=== PATIENT | female | born 1940 | race Asian ===

== ENCOUNTER 2017-07-25 14:58 | Observation (INO) | payer OTHER ==
--- NOTE | 2017-07-25 15:15 | PDOC ---
History of Present Illness - General Chief Complaint: Chest Pain Stated Complaint: ADMIT, CHEST PAIN (PCP SENT) Time Seen by Provider: 07/25/17 15:13 History Source: Patient - History of Present Illness Initial Comments: 76 year old Burkinan female with PMH of GERD and non-insulin dependent diabetes presenting with left sided temporal headache radiating to left chest and shoulder. She states that the headache started 5 days ago and then recently started to radiate down her neck and shoulder. She denies sob, diaphoresis, or other co-presenting symptoms. She admits to a heaviness in her left shoulder intermittently over the last two months as well. She admits to relief of the pain briefly with aleve and Tylenol. She saw Dr. Pantoja earlier in the day and she recommended that she be admitted for further cardiac workup. Patient is almost completely Danish speaking and has been living in the for a few years now. Denies fevers, chills, nausea, vomiting, diarrhea, constipation, photophobia, or other symptoms. 07/25/17 16:24 Past History - Past Medical History Allergies/Adverse Reactions: Allergies Allergy/AdvReac Type Severity Reaction Status Date / Time No Known Allergies Allergy Verified 07/25/17 15:10 Diabetes: Yes GI Disorders: Yes (GERD) - Suicide/Smoking/Psychosocial Hx Smoking History: Never smoked Hx Alcohol Use: No Drug/Substance Use Hx: No Review of Systems - Review of Systems Constitutional: No: Chills, Diaphoresis, Fever, Night Sweats HEENTM: No: Eye Pain, Blurred Vision, Recent change in vision, Hearing Loss, Throat Pain Respiratory: No: Cough, Shortness of Breath, SOB with Exertion Cardiac (ROS): Yes: Chest Pain ABD/GI: No: Diarrhea, Nausea, Vomiting : No: Burning, Dysuria Integumentary: No: Bruising, Erythema Neurological: Yes: Headache. No: Numbness, Paresthesia *Physical Exam - Vital Signs Last Vital Signs Temp Pulse Resp BP Pulse Ox 98.7 F 114 H 20 167/91 99 07/25/17 15:05 07/25/17 15:05 07/25/17 15:05 07/25/17 15:05 07/25/17 15:05 - Physical Exam General Appearance: Yes: Nourished, Appropriately Dressed. No: Apparent Distress HEENT: positive: EOMI, CARRIE, Normal ENT Inspection, Normal Voice, Other (To tenderness or palpablel cords in the left temporal regionj over site of endorsed headache.) Neck: positive: Trachea midline, Normal Thyroid, Supple. negative: Tender, Rigid Respiratory/Chest: positive: Chest Tender (reproducible chest pain in the left upper pectoral region.), Lungs Clear, Normal Breath Sounds. negative: Respiratory Distress, Accessory Muscle Use Cardiovascular: positive: Regular Rhythm, S1, S2, Tachycardia. negative: Regular Rate, Murmur Gastrointestinal/Abdominal: positive: Normal Bowel Sounds, Flat, Soft. negative : Tender Musculoskeletal: positive: Normal Inspection Extremity: positive: Normal Inspection, Normal Range of Motion (Slight pain with ranging of left shoulder.) Integumentary: positive: Normal Color, Dry, Warm Neurologic: positive: Alert, Normal Mood/Affect, Normal Response, Motor Strength 5/ ED Treatment Course - LABORATORY CBC & Chemistry Diagram: 07/25/17 16:00 07/25/17 18:12 Medical Decision Making - Medical Decision Making 76 year old female with headache radiating down to chest and shoulder. VSS with the exception of some tachycardia. Dr. Pantoja examined the patient in the ED and she was deemed appropriate for admission. Troponin negative and patient SATing well with HR of 74 prior to me leaving the ED at 22:10. CRP slightly elevated. Etiology of pain is likely MSK given negative troponin and normalized pulse rate. However, given diabetes and age, further cardiac workup will be pursued by Dr. Pantoja and Dr. Nur in the AM while under a tele obs stay. EKG - On admission it was sinus tach with incomplete RBB pattern and LAFB pattern and some inverted T waves in III. No old EKG to compare. 07/25/17 22:10 *DC/Admit/Observation/Transfer Diagnosis at time of Disposition: Chest pain Qualifiers: Chest pain type: unspecified Qualified Code(s): R07.9 - Chest pain, unspecified - Discharge Dispostion Admit: Yes - Referrals
--- NOTE | 2017-07-25 15:28 | PDOC ---
Attending Attestation - HPI HPI: 07/25/17 16:04 76year old female, with significant past medical history of NIDDM, gerd, who was sent into the emergency room by Dr. Pantoja complaining of a mild, constant bilateral temporal headache that radiates to the left neck, left shoulder, and left side of the chest. She took motrin with relief. Family friend states that her blood pressure was 170/90 yesterday and was also high in Dr. Blair office this morning. He also states that she has been experiencing heaviness in her left arm for the past couple of months. Denies fever, chills, nausea, vomiting. Denies SOB. Denies photophobia, visual changes, lightheadedness. Denies recent illness. Denies leg swelling. Patient does not speak Latvian. Please contact family friend Dr. Bullock for any questions . Allergies: NKDA PCP: Dr. Pantoja - Physicial Exam PE: 07/25/17 16:11 Constitutional: Awake, alert, oriented. No acute distress. Head: Normocephalic. Atraumatic Eyes: PERRL. EOMI. Conjunctivae are not pale. ENT: Mucous membranes are moist and intact. Posterior pharynx without exudates or erythema. Uvula midline. Neck: Supple. Full ROM. No lymphadenopathy. Cardiovascular: +tachycardic. Regular rhythm. S1, S2 regular. Distal pulses are 2+ and symmetric. Pulmonary/Chest: No evidence of respiratory distress. Clear to auscultation bilaterally No wheezing, rales or rhonchi. Abdominal: Soft and non-distended. There is no tenderness. No rebound, guarding or rigidity. No organomegaly. No palpable masses. Good bowel sounds. Back: No CVA tenderness. Musculoskeletal: No edema. No cyanosis. No clubbing. Full range of motion in all extremities. Nocalf tenderness. Radial/pedal pulses are intact and 2+ bilaterally Skin: Skin is warm and dry. No petechiae. No purpura. Neurological: Alert and oriented to person, place, and time. Cranial nerves II -XII are grossly intact. Normal speech. Strength is grossly symmetric. No sensory deficits. Psychiatric: Good eye contact. Normal interaction, affect and behavior. <Ca Gonzalez - Last Filed: 07/25/17 16:10> - Resident Resident Name: RuddyCristinaphanalejandra - ED Attending Attestation I have performed the following: I have examined & evaluated the patient, The case was reviewed & discussed with the resident, I agree w/resident's findings & plan, Exceptions are as noted - Medical Decision Making 07/25/17 15:28 I, Dr. Ronda Titus, DO, attest that this document has been prepared under my direction and personally reviewed by me in its entirety. I further attest, that it accurately reflects all work, treatment, procedures and medical decision -making performed by me. 07/25/17 16:17 a/p: 76yo female with SEARS and CP intermittent and new onset HTN -trop -abnl ekg -discussed with Dr. Pantoja who accepts pt to obs -consult to Dr. Nur -will send ESR and CRP given L sided sears -neuro intact -labs -cardiac monitoring <Ronda Titus - Last Filed: 07/25/17 16:19> Heart Score/ECG Review - ECG Intrepretation Comment:: 07/25/17 16:18 sinus tach at 101, incomplete RBBB, LAFB, abnl ekg <Ronda Titus - Last Filed: 07/25/17 16:19>
[2017-07-25] MEDS ORDERED: ASPIRIN 81 MG CHEWABLE TABLETS PO ONE ×2 (15:52→16:07)
[2017-07-25] MEDS ORDERED: ASPIRIN 81 MG CHEWABLE TABLETS ONE ×2 (16:00→16:32)
[2017-07-25] MEDS ORDERED: METOCLOPRAMIDE HCL 10 MG TABLET (FP) PO ONE ×2 (16:07→16:32)
[2017-07-25] MEDS ORDERED: ACETAMINOPHEN 500 MG TABLET (FP) PO ONE (16:07)
[2017-07-25 16:27] LABS: BASOPHIL 1.9 % (0-2.0); EOSINOPHIL 2.9 % (0-4.5); MCH 22.6 pg (25.7-33.7); MCHC 32.2 g/dl (32.0-36.0); MEAN PLT VOLUME 7.9 fl (7.5-11.1); NEUTROPHILS 60.6 % (42.8-82.8); PLATELET COUNT 344 K/MM3 (134-434); RDW 17.7 % (11.6-15.6); WHITE BLOOD COUNT 8.8 K/mm3 (4.0-10.0)
[2017-07-25] MEDS ORDERED: ACETAMINOPHEN 325 MG TABLET (FP) ONE (16:31)
[2017-07-25 16:57] LABS: INR 0.88 (0.82-1.09); PROTHROMBIN TIME (PATIENT) 9.9 SEC (9.98-11.88)
--- NOTE | 2017-07-25 18:25 | HP ---
Admitting History and Physical - Primary Care Physician PCP: Armen Pantoja - Admission History of Present Illness: 76 y o female, sent from my office for substernal chest pain, radiating to neck and left arm. also c/o headach last few days, bp at home was high was sent to er for further work up - Past Medical History Gastrointestinal: Yes: GERD Endocrine: Yes: Diabetes Mellitus - Smoking History Smoking history: Never smoked - Alcohol/Substance Use Hx Alcohol Use: No Home Medications - Allergies Allergies/Adverse Reactions: Allergies Allergy/AdvReac Type Severity Reaction Status Date / Time No Known Allergies Allergy Verified 07/25/17 15:10 - Home Medications Home Medications: Ambulatory Orders Aspirin Coated [Ecotrin -] 81 mg PO DAILY #30 tab 07/26/17 Metformin HCl [Glucophage -] 500 mg PO DAILY@0700 #0 tablet 07/26/17 Metoprolol Succinate [Toprol XL -] 25 mg PO DAILY #30 tab 07/26/17 Miscellaneous Medical Supply [Outpatient Order] 1 each ASDIR #1 misc Physical Examination Vital Signs: Vital Signs Temperature 98.7 F 07/25/17 15:05 Pulse Rate 114 H 07/25/17 15:05 Respiratory Rate 20 07/25/17 15:05 Blood Pressure 167/91 07/25/17 15:05 O2 Sat by Pulse Oximetry (%) 99 07/25/17 15:05 Constitutional: Yes: Calm HENT: Yes: Atraumatic Neck: Yes: Supple Cardiovascular: Yes: Regular Rate and Rhythm Respiratory: Yes: CTA Bilaterally Gastrointestinal: Yes: Normal Bowel Sounds Extremities: Yes: WNL Edema: No Peripheral Pulses WNL: Yes Neurological: Yes: Alert, Oriented Imaging - Results Chest X-ray: Report Reviewed Cat Scan: Report Reviewed Problem List - Problems (1) Chest pain Assessment/Plan: tele observation serial cardiac enzymes echo in am cardiology consult Code(s): R07.9 - CHEST PAIN, UNSPECIFIED Qualifiers: Chest pain type: unspecified Qualified Code(s): R07.9 - Chest pain, unspecified; R07.9 - Chest pain, unspecified (2) GERD (gastroesophageal reflux disease) Assessment/Plan: on protonix Code(s): K21.9 - GASTRO-ESOPHAGEAL REFLUX DISEASE WITHOUT ESOPHAGITIS (3) Diabetes Assessment/Plan: on met formin bgms Code(s): E11.9 - TYPE 2 DIABETES MELLITUS WITHOUT COMPLICATIONS Assessment/Plan Laboratory Tests 07/25/17 07/25/17 07/25/17 16:00 16:00 16:00 WBC 8.8 RBC 5.34 H Hgb 12.1 Hct 37.4 MCV 70.0 L MCH 22.6 L MCHC 32.2 RDW 17.7 H Plt Count 344 MPV 7.9 Neutrophils % 60.6 Lymphocytes % 29.0 Monocytes % 5.6 Eosinophils % 2.9 Basophils % 1.9 ESR PT with INR 9.90 L INR 0.88 Sodium Potassium Chloride Carbon Dioxide Anion Gap BUN Creatinine Creat Clearance w eGFR Random Glucose Calcium Magnesium Cancelled Total Bilirubin AST ALT Alkaline Phosphatase Creatine Kinase Cancelled Troponin I Cancelled Total Protein Albumin 07/25/17 07/25/17 16:00 16:43 WBC RBC Hgb Hct MCV MCH MCHC RDW Plt Count MPV Neutrophils % Lymphocytes % Monocytes % Eosinophils % Basophils % ESR 30 PT with INR INR Sodium Cancelled Potassium Cancelled Chloride Cancelled Carbon Dioxide Cancelled Anion Gap Cancelled BUN Cancelled Creatinine Cancelled Creat Clearance w eGFR Cancelled Random Glucose Cancelled Calcium Cancelled Magnesium Total Bilirubin Cancelled AST Cancelled ALT Cancelled Alkaline Phosphatase Cancelled Creatine Kinase Troponin I Total Protein Cancelled Albumin Cancelled Active Medications Generic Name Dose Route Start Last Admin Trade Name Jonoq PRN Reason Stop Dose Admin Acetaminophen 650 mg 07/25/17 18:20 07/26/17 17:20 Tylenol - PO 650 mg Q6H PRN Administration FEVER OR PAIN Aspirin 81 mg 07/26/17 16:30 07/26/17 17:20 Ecotrin - PO 81 mg DAILY GALINA Administration Metformin HCl 500 mg 07/26/17 07:00 07/26/17 06:49 Glucophage - PO 500 mg DAILY@0700 GALINA Administration Metoprolol Succinate 25 mg 07/26/17 16:30 07/26/17 17:20 Toprol Xl - PO 25 mg DAILY GALINA Administration Pantoprazole Sodium 40 mg 07/25/17 18:30 07/26/17 09:22 Protonix - PO 40 mg DAILY GALINA Administration
[2017-07-25 18:53] LABS: ALBUMIN 3.7 g/dl (3.4-5.0); ANION GAP 9 (8-16); BILIRUBIN,TOTAL 0.2 mg/dL (0.2-1.0); CALCIUM 8.8 mg/dL (8.5-10.1); CO2 25 mmol/L (21-32); CREATININE 0.7 mg/dL (0.55-1.02); GLUCOSE,RANDOM 111 mg/dL (74-106); SGOT/AST 15 U/L (15-37); SGPT/ALT 28 U/L (12-78); TOT PROT 7.7 g/dl (6.4-8.2)
[2017-07-25 18:54] LABS: ALK PHOS 74 U/L (45-117)
[2017-07-25] MEDS ORDERED: PANTOPRAZOLE 40 MG TABLET (FP) ONE (19:07)
[2017-07-25] MEDS: PANTOPRAZOLE 40 MG TABLET (FP) PO SCH (19:24)
[2017-07-25 20:08] LABS: CPK 68 IU/L (26-192); TROPONIN I < 0.02 ng/ml (0.00-0.05)
[2017-07-26 04:01] LABS: CPK 81 IU/L (26-192); TROPONIN I < 0.02 ng/ml (0.00-0.05)
[2017-07-26 05:25] VITALS: BMI 29.2
[2017-07-26] MEDS ORDERED: metFORMIN HCL 500 MG TABLET (FP) PO SCH (07:00)
[2017-07-26 09:03] LABS: THYROID STIMULATING HORMONE 0.69 uIU/ml (0.358-3.74)
[2017-07-26] MEDS: PANTOPRAZOLE 40 MG TABLET (FP) PO SCH (09:22)
[2017-07-26] MEDS: ACETAMINOPHEN 325 MG TABLET (FP) PO PRN ×2 (09:22→17:20)
[2017-07-26 11:26] LABS: CPK 55 IU/L (26-192)
[2017-07-26 11:27] LABS: TROPONIN I < 0.02 ng/ml (0.00-0.05)
--- NOTE | 2017-07-26 15:35 | PN ---
Progress Note (short form) - Note Progress Note: Patient seen and examined and consultation was dictated. Impression: 1. Left sided temporal headache associated with left neck ,arm and upper chest pain, etiology: a). CAD angina needs to be excluded specially that patient has NIDDM and hypertension. b). Temporal arteritis should be excluded. c). Sinusitis as mentioned in the CT scan report. 2. Hypertension/HCVD. 3. NIDDM 4 GERD. Recommendation: 1. Add Beta maria elena for control of BP in the presence of chest pain. 2. Persantine myoview stress test. 3. ESR. 4. Follow up EKG. 5. Lipid profile. 6. Add ASA 81mg. in the presence of above symptoms and cerebral ischemic changes. 7. evaluation of sinusitis. Thank you sincerely. Og Nur MD
[2017-07-26 16:04] VITALS: BP 132/69; PULSE 85; TEMP 97.5
[2017-07-26] MEDS ORDERED: ASPIRIN COATED 81 MG TABLET.EC PO SCH (16:30)
[2017-07-26] MEDS ORDERED: METOPROLOL SUCCINATE 25 MG TAB.SR.24H (FP) PO SCH (16:30)
--- NOTE | 2017-07-26 17:17 | CONS ---
DATE OF CONSULTATION: 07/26/2017 CARDIOLOGY CONSULTATION REQUESTED BY: Brain Pantoja MD CHIEF COMPLAINT: 1. Left temporal headache. 2. Pain radiating to the neck, anterior chest, and left arm. Patient is a 76-year-old Bulgarian female, with history of [id number] diabetes mellitus, gastroesophageal reflux disease, osteoporosis, who developed recurring episodes of left temporal headache, which was severe, and states that the headache radiated to the left neck, to the upper anterior chest and left arm. Symptoms would last several minutes and would tang spontaneously. States that for approximately 4 days, she has had recurring episodes and was advised admission by PCP. On questioning, she denies having any exertional chest, arm, back, jaw pain or discomfort. There is no history of exertional dyspnea, paroxysmal nocturnal dyspnea, or orthopnea. No history of palpitations, lightheadedness, dizziness, or syncope. No history of pedal edema. There is no history of heart murmur. There is no known history of hypertension. Since admission, patient denies having recurrence of headaches. PAST HISTORY: As mentioned in the history of present illness. SOCIAL HISTORY: [place] currently is [place] She has 2 sons and a daughter who apparently are healthy. She is a nonsmoker. Denies excessive use of caffeine, and does not drink. FAMILY HISTORY: Father in his old age, apparently had chronic pulmonary disease related to smoking. Mother in her 70s due to cancer, site uncertain. She has 6 sisters and 2 brothers. Apparently all of them are healthy. ALLERGIES: None reported. MEDICATIONS: Prior to admission, the patient was on the following medications: 1. Omeprazole 20 mg p.o. p.r.n. 2. States she was taking medication once a week and appears that she was on Fosamax 70 mg p.o. once a week. 3. Apparently was on metformin 500 mg p.o. daily before breakfast. CURRENT MEDICATIONS: 1. Tylenol 650 mg q.6 h. p.r.n. 2. Glucophage 500 mg p.o. daily. 3. Protonix 40 mg p.o. daily. REVIEW OF SYSTEMS: Constitutional: No history of chills, fever or night sweats. No history of unintentional weight loss. HEENT: History of headaches, as discussed in the history of present illness. No history of diplopia, blurred vision. No history of epistaxis, hoarseness, tinnitus or deafness reported. Cardiovascular: No history of exertional chest pain or discomfort. See history of present illness. Respiratory: No history of cough, expectoration or hemoptysis. No history of tuberculosis. Gastrointestinal: History of gastroesophageal reflux since early age. No history of nausea, vomiting, melena, or hematemesis. No history of abdominal distention, pain, or discomfort. No history of change in bowel habits. Neurological: No history of lightheadedness, dizziness, presyncope, or syncope. No history of focal weakness or seizures. Musculoskeletal: Denies having arthralgias or myalgias. Endocrine: See history of present illness. No history of polyuria or polydipsia. No history of intolerance to cold or warm weather. Hematological/Lymphatics: No history of bleeding, ecchymosis, or anemia. No history of lymphadenopathy. Genitourinary: No history of dysuria, frequency, or hematuria. EXAMINATION: General: A 76-year-old female, who was in no acute distress. No pallor, cyanosis, clubbing, or jaundice. Vital Signs: Blood pressure on admission was 167/91 mmHg, currently is 159/79 mmHg. Her pulse was 79 beats per minute and regular. Patient was afebrile. Respirations were 18. Weight was 149 pounds 12 ounces. Neck: Supple. No jugular venous distention. Carotids were equal and upstrokes were normal. No bruits were heard. No thyromegaly was appreciated. Heart: PMI was in the 5th intercostal space. No heaves or thrills. S1 and S2 were normal. No murmur, gallops, or clicks were heard. Lungs: Clear on auscultation. Chest: Normal AP diameter. Expansion was symmetrical. No point tenderness was elicited. Abdomen: Soft, protuberant, and nontender. No hepatosplenomegaly or palpable masses were felt. Bowel sounds were present. No bruits were heard. Extremities: No calf tenderness or dependent edema. Pulses were equal. ECG, July 25, 2017: Sinus tachycardia, interatrial conduction abnormality, left anterior hemiblock. Q waves in V2 may be related to left anterior hemiblock. Possibility of anteroseptal wall myocardial infarction of indeterminate age cannot be excluded. Atypical R-wave progression across the precordial leads, probably related to left anterior hemiblock and/or technical reasons. No previous electrocardiogram is available for comparison. LABORATORY DATA: On July 25, CK was 68; on July 26 was 81 and 55 respectively. Troponins were less than 0.02. TSH was 0.69. X-RAY OF CHEST IMPRESSION: Shallow inspiration, resulting in crowding of the pulmonary vasculature. Ill-defined opacity in the left mid lung, early infiltrate/pneumonia is not excluded. Clinical correlation and follow up are suggested. CT OF THE HEAD IMPRESSION: No evidence of acute intracranial pathology. Sinusitis, as described (there is partial opacification of the maxillary and ethmoid sinuses, consistent with acute/chronic sinusitis. ECHOCARDIOGRAM INTERPRETATION SUMMARY: The left ventricle size, thickness, and function are normal. The right ventricle is normal in size and function. There is trace tricuspid regurgitation. IMPRESSION: 1. Left temporal headache associated with left neck, arm, and upper anterior chest discomfort. Etiology to be determined. a. Coronary artery disease, angina pectoris needs to be excluded, especially in view of underlying history of diabetes mellitus and recently discovered hypertension. b. Secondary to hypertension. c. Temporal arteritis needs to be excluded. 2. History of gastroesophageal reflux disease. 3. Left ventricular hypertrophy by electrocardiographic criteria. RECOMMENDATIONS: 1. Follow up ECG. 2. Add Toprol XL, initially 25 mg p.o. daily, and dose should be increased according to symptoms and blood pressure readings. 3. Continue aspirin 81 mg p.o. daily. 4. Evaluation of maxillary and ethmoid sinusitis, as mentioned in the CT scan of the head. 5. Dipyridamole Myoview stress test. 6. Lipid profile. 7. ESR to exclude the possibility of temporal arteritis. 8. Patient needs to be counseled regarding curtailing sodium intake and close follow up of blood pressure, especially in view of changes mentioned on CT scan consistent with chronic small-vessel ischemia. Thank you for your referral. Yours sincerely, HAZEL PEREZ M.D. EDGARDO/[id number]
--- NOTE | 2017-07-26 17:24 | EKG ---
Test Reason : Blood Pressure : / mmHG Vent. Rate : 101 BPM Atrial Rate : 101 BPM P-R Int : 148 ms QRS Dur : 108 ms QT Int : 376 ms P-R-T Axes : 056 -48 011 degrees QTc Int : 487 ms SINUS TACHYCARDIA POSSIBLE LEFT ATRIAL ENLARGEMENT INCOMPLETE RIGHT BUNDLE BRANCH BLOCK LEFT ANTERIOR FASCICULAR BLOCK LEFT VENTRICULAR HYPERTROPHY CANNOT RULE OUT SEPTAL INFARCT , AGE UNDETERMINED ABNORMAL ECG WHEN COMPARED WITH ECG OF 06-JUN-2010 12:59, MINIMAL CRITERIA FOR SEPTAL INFARCT ARE NOW PRESENT Confirmed by VAISHALI LUTZ MD ([id number]) on 07/26/2017 5:23:51 PM Referred By: Confirmed By:VAISHALI LUTZ MD
--- NOTE | 2017-07-26 18:43 | DS ---
Physical Examination Vital Signs: Vital Signs Temperature 97.5 F L 07/26/17 14:00 Pulse Rate 85 07/26/17 14:00 Respiratory Rate 18 07/26/17 14:00 Blood Pressure 132/69 07/26/17 14:00 O2 Sat by Pulse Oximetry (%) 97 07/26/17 10:00 Constitutional: Yes: No Distress HENT: Yes: Atraumatic Neck: Yes: Supple Cardiovascular: Yes: Regular Rate and Rhythm Respiratory: Yes: CTA Bilaterally Gastrointestinal: Yes: Normal Bowel Sounds Extremities: Yes: WNL Neurological: Yes: Alert, Oriented Labs: CBC, BMP 07/25/17 18:12 Discharge Summary Reason For Visit: HEADACHE,CHEST PAIN Current Active Problems Chest pain (Acute) Diabetes (Acute) GERD (gastroesophageal reflux disease) (Acute) - Instructions Referrals: Armen Pantoja MD [Primary Care Provider] - Og Nur MD [Staff Physician] - - Home Medications Comprehensive Discharge Medication List: Ambulatory Orders Aspirin Coated [Ecotrin -] 81 mg PO DAILY #30 tab 07/26/17 Metformin HCl [Glucophage -] 500 mg PO DAILY@0700 #0 tablet 07/26/17 Metoprolol Succinate [Toprol XL -] 25 mg PO DAILY #30 tab 07/26/17 dc home out patient persantine stress test d/w survival specialist and family dr king
== END 2017-07-26 19:11 | disposition home or self-care (01) ==
LOC: JER 14:58 → JERBED 16:18 → J4S 07-26 04:13
PROVIDERS: ADMIT Internal Medicine; ATTEND Internal Medicine
DX: R07.9 Chest pain, unspecified (principal); E11.9 Type 2 diabetes mellitus without complications; K21.9 Gastro-esophageal reflux disease without esophagitis
CPT/HCPCS: 36415; 70450-TC; 71020-TC; 80053; 82550; 83036; 84443; 84484; 85025; 85610; 85651; 86140; 93005; 93010; 93306-TC; 99285-25; G0378